=== PATIENT | male | born 1960 | race African-American/Black ===

== ENCOUNTER 2016-08-11 19:46 | Emergency (ER) | payer MEDICARE ==
[~2016-08-11] VITALS: Ht 182.9 cm; Wt 138.3 kg
[2016-08-11 19:50] VITALS: BP 134/64
[2016-08-11 20:57] LABS: TROPONIN I < 0.30 ng/mL (<=0.30)
[2016-08-11 21:00] LABS: ACETAMINOPHEN < 10 ug/mL (10-30); ALANINE AMINOTRANSFERASE 12 U/L (3-41); ALBUMIN/GLOBULIN RATIO 1.2 (1.0-2.7); ALCOHOL < 10 mg/dL; ANION GAP 11 (5-15); ASPARTATE AMINO TRANSFERASE 19 U/L (5-40); CALCIUM 9.1 mg/dL (8.6-10.2); CARBON DIOXIDE 34 mEQ/L (20-30); CHLORIDE 90 mEQ/L (98-107); CREATININE 0.6 mg/dL (0.7-1.2); GLOMERULAR FILTRATION RATE > 60 mL/min (>60); HEMOLYSIS 2; POTASSIUM 3.5 mEQ/L (3.4-4.9); SODIUM 135 mEQ/L (135-145); TOTAL PROTEIN 6.9 g/dL (6.6-8.7)
[2016-08-11 21:11] LABS: CKMB 3.8 ng/mL (< 6.7)
[2016-08-11 21:22] LABS: BASOPHILS % (AUTO) 1.6 % (0.0-2.0); EOSINOPHILS % (AUTO) 3.7 % (0.0-3.0); LYMPHOCYTES % (AUTO) 36.5 % (20.0-45.0); MEAN CORPUSCULAR HEMOGLOBIN 27.3 PG (27.0-31.0); MEAN CORPUSCULAR HGB CONC 32.5 G/DL (32.0-36.0); MEAN CORPUSCULAR VOLUME 84 FL (80-99); MEAN PLATELET VOLUME 7.2 FL (6.5-10.1); MONOCYTES % (AUTO) 6.8 % (1.0-10.0); NEUTROPHILS % (AUTO) 51.4 % (45.0-75.0); PLATELET COUNT 164 K/UL (150-450); RED BLOOD COUNT 3.98 M/UL (4.70-6.10); RED CELL DISTRIBUTION WIDTH 13.9 % (11.6-14.8); WHITE BLOOD COUNT 5.7 K/UL (4.8-10.8)
[2016-08-11] MEDS ORDERED: ASPIRIN81 MG ORAL (21:43)
[2016-08-11] MEDS ORDERED: TRAZODONE HCL100 MG ORAL (21:43)
[2016-08-11] MEDS ORDERED: AMLODIPINE BESYL5 MG ORAL (21:43)
[2016-08-11] MEDS ORDERED: HYDROCHLOROTHIA25 MG ORAL (21:43)
[2016-08-11] MEDS ORDERED: DEPAKOTE250 MG PO (21:43)
[2016-08-11] MEDS ORDERED: REMERON45 MG ORAL (21:43)
[2016-08-11] MEDS ORDERED: HALOPERIDOL1 MG ORAL (21:43)
[2016-08-11] MEDS ORDERED: PANTOPRAZOLE SO40 MG ORAL (21:43)
[2016-08-11] MEDS ORDERED: HUMULIN R100 UNIT/1 SUBQ (21:43)
[2016-08-11] MEDS ORDERED: LOSARTAN POTASS25 MG ORAL (21:43)
[2016-08-11] MEDS ORDERED: LIDOCAINE700 M1 TP (21:43)
[2016-08-11] MEDS ORDERED: SERTRALINE HCL50 MG ORAL (21:43)
[2016-08-11] MEDS ORDERED: METFORMIN HCL1000 M1 ORAL (21:43)
[2016-08-11] MEDS ORDERED: FLEET ENEMA133 ML RECTAL (21:43)
[2016-08-11] MEDS ORDERED: DULCOLAX10 MG RC (21:43)
[2016-08-11] MEDS ORDERED: COLACE100 MG ORAL (21:43)
[2016-08-11] MEDS ORDERED: CLONIDINE HCL0.1 MG PO (21:43)
[2016-08-11] MEDS ORDERED: GLIPIZIDE5 MG ORAL (21:43)
[2016-08-11] MEDS ORDERED: CARAFATE1 G1 ORAL (21:43)
[2016-08-11] MEDS ORDERED: METOPROLOL TART25 MG ORAL (21:43)
[2016-08-11] MEDS ORDERED: LIQUITEARS15 ML BOTH EYES (21:43)
[2016-08-11 21:50] VITALS: BP 148/71
--- NOTE | 2016-08-11 22:01 | Emergency Room Report ---
History of Present Illness General Chief Complaint: General Complaint Source: Patient, Medical Record, EMS Present Illness HPI 55-year-old male presents to ED for evaluation. Per EMS patient was brought here because he was altered at the group home. EMS states that the nurse tried to wake up the patient is having trouble so she called 911. When EMS evaluated the patient he was awake. However he felt lethargic. Patient states he feels "groggy". Patient states he otherwise feels fine. Denies any headaches, blurry vision, nausea or vomiting. Denies chest pain or shortness of breath. Per record shows extensive psychiatric history and is on multiple medications. Patient denies any suicidal or homicidal ideation. Denies hearing voices. No other aggravating relieving factors. Denies any other associated symptoms Allergies: Uncoded Allergies: ALMONDS (Allergy, Unknown, 08/11/16) Patient History Past Medical History: HTN, CAD, COPD, GERD, psych hx Past Surgical History: none Pertinent Family History: none Social History: Denies: alcohol use, drug use, smoking Immunizations: UTD Reviewed Nursing Documentation: PMH: Agreed, PSxH: Agreed Nursing Documentation-PMH Hx Cardiac Problems: Yes - CAD,ATHEROSCLEROSIS,SLEEP APNEA Hx Hypertension: Yes Hx COPD: Yes Hx Diabetes: Yes Hx Gastrointestinal Problems: Yes - GERD,AKF History Of Psychiatric Problem: Yes - SCHIZOPHRENIA,ANXIETY Review of Systems All Other Systems: negative except mentioned in HPI Physical Exam Vital Signs Date Time Temp Pulse Resp B/P Pulse Ox O2 Delivery O2 Flow Rate FiO2 08/11/16 19:48 98.1 88 16 141/75 92 Room Air Sp02 EP Interpretation: reviewed, normal General Appearance: no apparent distress, alert, GCS 15, non-toxic, obese Head: normocephalic, atraumatic Eyes: bilateral eye PERRL, bilateral eye normal inspection ENT: hearing grossly normal, normal pharynx, no angioedema, normal voice Neck: full range of motion, supple/symm/no masses Respiratory: chest non-tender, lungs clear, normal breath sounds, speaking full sentences Cardiovascular #1: regular rate, rhythm, no edema Cardiovascular #2: 2+ carotid (R), 2+ carotid (L), 2+ radial (R), 2+ radial (L) , 2+ dorsalis pedis (R), 2+ dorsalis pedis (L) Gastrointestinal: normal bowel sounds, non tender, soft, non-distended, no guarding, no rebound Rectal: deferred Genitourinary: normal inspection, no CVA tenderness Musculoskeletal: back normal, gait/station normal, normal range of motion, non- tender Neurologic: alert, oriented x3, responsive, motor strength/tone normal, sensory intact, speech normal Psychiatric: judgement/insight normal, memory normal, mood/affect normal, no suicidal/homicidal ideation Reflexes: 3+ bicep (R), 3+ bicep (L), 3+ tricep (R), 3+ tricep (L), 3+ knee (R) , 3+ knee (L) Skin: normal color, no rash, warm/dry, well hydrated Lymphatic: no adenopathy Medical Decision Making Diagnostic Impression: Primary Impression: Altered level of consciousness ER Course Hospital Course 55-year-old male presents to ED for evaluation. Lethargic at the group home. More awake now Differential diagnoses include: Psychosis, EtOH, drug abuse Clinical course patient placed on stretcher. On classroom monitor. After initial history and physical ordered labs, IV fluids, EKG, CT brain. Labs reviewed-electrolytes okay, no leukocytosis, hemoglobin/hematocrit stable, tox panel negative. EKG - NSR, no acute changes CXR unremarkable CT brain shows no acute pathology patient remains awake and oriented here. Given negative workup I do not believe patient requires admission at this time. Discussed case with PMD Dr. Nagy and he agrees patient can be safely discharged back to facility i. I feel this is a highly complex case requiring extensive working including EKG/Rhythm strip, Xray/CT/US, Blood/urine lab work, repeat exams while in ED, and administration of strong opiates/narcotics for pain control, admission to hospital or close patient follow up. Diagnosis - ALOC Stable and discharged to SNF. Followup with PMD. Return to ED if symptoms recur or worsen Labs Test 08/11/16 20:28 08/11/16 20:55 Sodium Level 135 mEQ/L (135-145) Potassium Level 3.5 mEQ/L (3.4-4.9) Chloride Level 90 mEQ/L (98-107) Carbon Dioxide Level 34 mEQ/L (20-30) Anion Gap 11 (5-15) Blood Urea Nitrogen 10 mg/dL (7-23) Creatinine 0.6 mg/dL (0.7-1.2) Estimat Glomerular Filtration Rate > 60 mL/min (>60) Glucose Level 118 mg/dL (74-106) Calcium Level 9.1 mg/dL (8.6-10.2) Total Bilirubin 0.4 mg/dL (0.0-1.2) Aspartate Amino Transf (AST/SGOT) 19 U/L (5-40) Alanine Aminotransferase (ALT/SGPT) 12 U/L (3-41) Alkaline Phosphatase 43 U/L (40-129) Total Creatine Kinase 522 U/L (38-174) Creatine Kinase MB 3.8 ng/mL (< 6.7) Creatine Kinase MB Relative Index 0.7 Troponin I < 0.30 ng/mL (<=0.30) Pro-B-Type Natriuretic Peptide 90 pg/mL (0-125) Total Protein 6.9 g/dL (6.6-8.7) Albumin 3.8 g/dL (3.5-5.2) Globulin 3.1 g/dL Albumin/Globulin Ratio 1.2 (1.0-2.7) Salicylates Level < 1 mg/dL (10-30) Acetaminophen Level < 10 ug/mL (10-30) Serum Alcohol < 10 mg/dL White Blood Count 5.7 K/UL (4.8-10.8) Red Blood Count 3.98 M/UL (4.70-6.10) Hemoglobin 10.8 G/DL (14.2-18.0) Hematocrit 33.4 % (42.0-52.0) Mean Corpuscular Volume 84 FL (80-99) Mean Corpuscular Hemoglobin 27.3 PG (27.0-31.0) Mean Corpuscular Hemoglobin Concent 32.5 G/DL (32.0-36.0) Red Cell Distribution Width 13.9 % (11.6-14.8) Platelet Count 164 K/UL (150-450) Mean Platelet Volume 7.2 FL (6.5-10.1) Neutrophils (%) (Auto) 51.4 % (45.0-75.0) Lymphocytes (%) (Auto) 36.5 % (20.0-45.0) Monocytes (%) (Auto) 6.8 % (1.0-10.0) Eosinophils (%) (Auto) 3.7 % (0.0-3.0) Basophils (%) (Auto) 1.6 % (0.0-2.0) Urine Opiates Screen Negative (NEGATIVE) Urine Barbiturates Screen Negative (NEGATIVE) Phencyclidine (PCP) Screen Negative (NEGATIVE) Urine Amphetamines Screen Negative (NEGATIVE) Urine Benzodiazepines Screen Negative (NEGATIVE) Urine Cocaine Screen Negative (NEGATIVE) Urine Marijuana (THC) Screen Negative (NEGATIVE) EKG Diagnostic Results Rate: normal Rhythm: NSR ST Segments: no acute changes ASA given to the pt in ED: No Rhythm Strip Diag. Results EP Interpretation: yes Rhythm: NSR, no PVC's, no ectopy Chest X-Ray Diagnostic Results EP Interpretation: Yes Findings: no consolidation, no effusion, no pneumothorax, no acute cardiopulmonary disease Number of Views: 1 CT/MRI/US Diagnostic Results CT/MRI/US Diagnostic Results : Imaging Test Ordered: CT head Impression no acute process Last Vital Signs Date Time Temp Pulse Resp B/P Pulse Ox O2 Delivery O2 Flow Rate FiO2 08/11/16 19:50 98.1 79 16 134/64 92 Room Air Status: improved Disposition: XFER SNF Condition: Stable Patient Instructions: Polypharmacy Problems, [id number], Altered Mental Status ANDREA EATON M.D. Aug 11, 2016 22:01
[2016-08-11 22:57] VITALS: BP 142/69
--- NOTE | 2016-08-12 08:55 | Diagnostic Imaging Report ---
Indications: Mental Technique: Spiral acquisitions obtained through the brain. Angled axial and coronal 5 x 5 mm slices were reconstructed. Total dose length product 1569 mGycm. CTDI vol(s) 70 mGy. Dose reduction achieved using automated exposure control Comparison: None Findings: No acute hemorrhage or edema. No mass effect or midline shift. Normal park-white differentiation. Mildly prominent ventricles, normal caliber extra axial CSF spaces. There is patency of the cavum septum pellucidum. Prominent sella turcica containing CSF attenuation material, likely empty sella. Visualized orbits are unremarkable. There is ethmoid, sphenoid, and maxillary sinus disease. Mastoids are clear. The calvarium is intact.. Impression: Mild age-related volume loss Negative for acute intracranial bleed or mass effect Sinus disease This agrees with the preliminary interpretation provided overnight by Dr. Lyons The CT scanner at [facility] is accredited by the [employer] and the scans are performed using protocols designed to limit radiation exposure to as low as reasonably achievable to attain images of sufficient resolution adequate for diagnostic evaluation.
--- NOTE | 2016-08-12 10:31 | Diagnostic Imaging Report ---
Indication: Chest pain Technique: One view of the chest Comparison: none Findings: Body habitus limits evaluation. The heart is borderline enlarged. Lungs and pleural spaces are clear. Impression: Cardiomegaly. No acute process
== END 2016-08-11 22:57 ==
LOC: EDBD 19:46 → EMR 20:45
DX: R41.82 Altered mental status, unspecified (principal); R53.83 Other fatigue; I10 Essential (primary) hypertension; I25.10 Atherosclerotic heart disease of native coronary artery without angina pectoris; J44.9 Chronic obstructive pulmonary disease, unspecified; G47.30 Sleep apnea, unspecified; F41.9 Anxiety disorder, unspecified; Z91.018 Allergy to other foods
CPT/HCPCS: 36415; 70450; 71010; 80053; 80300; 82550; 82553; 83880; 84484; 85025; 93005; 96360; 99284; G0480; 80329

== ENCOUNTER 2016-09-12 09:24 | Emergency (ER) | payer MEDICARE ==
[~2016-09-12] VITALS: Ht 182.9 cm; Wt 102.1 kg
[~2016-09-12 09:24] MED LIST: AMLODIPINE BESYL5 MG ORAL; ASPIRIN81 MG ORAL; CARAFATE1 G1 ORAL; CLONIDINE HCL0.1 MG PO; COLACE100 MG ORAL; DEPAKOTE250 MG PO; DULCOLAX10 MG RC; FLEET ENEMA133 ML RECTAL; GLIPIZIDE5 MG ORAL; HALOPERIDOL1 MG ORAL; HUMULIN R100 UNIT/1 SUBQ; HYDROCHLOROTHIA25 MG ORAL; LIDOCAINE700 M1 TP; LIQUITEARS15 ML BOTH EYES; LOSARTAN POTASS25 MG ORAL; METFORMIN HCL1000 M1 ORAL; METOPROLOL TART25 MG ORAL; PANTOPRAZOLE SO40 MG ORAL; REMERON45 MG ORAL; SERTRALINE HCL50 MG ORAL; TRAZODONE HCL100 MG ORAL
[2016-09-12 09:38] VITALS: BP 144/93
[2016-09-12 10:09] LABS: BASOPHILS % (AUTO) 1.1 % (0.0-2.0); EOSINOPHILS % (AUTO) 2.4 % (0.0-3.0); LYMPHOCYTES % (AUTO) 39.2 % (20.0-45.0); MEAN CORPUSCULAR HEMOGLOBIN 27.3 PG (27.0-31.0); MEAN CORPUSCULAR HGB CONC 31.6 G/DL (32.0-36.0); MEAN CORPUSCULAR VOLUME 86 FL (80-99); MEAN PLATELET VOLUME 8.1 FL (6.5-10.1); MONOCYTES % (AUTO) 8.6 % (1.0-10.0); NEUTROPHILS % (AUTO) 48.8 % (45.0-75.0); PLATELET COUNT 161 K/UL (150-450); RED BLOOD COUNT 4.41 M/UL (4.70-6.10); RED CELL DISTRIBUTION WIDTH 13.8 % (11.6-14.8); WHITE BLOOD COUNT 5.2 K/UL (4.8-10.8)
[2016-09-12 10:21] LABS: TROPONIN I < 0.30 ng/mL (<=0.30)
[2016-09-12 10:23] LABS: ACETAMINOPHEN < 10 ug/mL (10-30); ALANINE AMINOTRANSFERASE 9 U/L (3-41); ALBUMIN/GLOBULIN RATIO 1.4 (1.0-2.7); ALCOHOL < 10 mg/dL; ANION GAP 11 (5-15); ASPARTATE AMINO TRANSFERASE 18 U/L (5-40); CALCIUM 8.9 mg/dL (8.6-10.2); CARBON DIOXIDE 30 mEQ/L (20-30); CHLORIDE 101 mEQ/L (98-107); CREATININE 0.7 mg/dL (0.7-1.2); GLOMERULAR FILTRATION RATE > 60 mL/min (>60); HEMOLYSIS 4; POTASSIUM 3.7 mEQ/L (3.4-4.9); SODIUM 142 mEQ/L (135-145); TOTAL PROTEIN 6.6 g/dL (6.6-8.7)
[2016-09-12 10:24] LABS: AMMONIA 70 umol/L (16-60)
[2016-09-12 10:33] LABS: THYROID STIMULATING HORMONE 0.628 uIU/mL (0.300-4.500)
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
[2016-09-12 13:30] VITALS: BP 138/84
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
[2016-09-12] MEDS ORDERED: BENZTROPINE MESY1 MG PO (15:48)
[2016-09-12] MEDS ORDERED: HALOPERIDOL1 MG ORAL (15:48)
[2016-09-12] MEDS ORDERED: Haloperidol 5mg/ml Inj IM ONE (19:00)
[2016-09-12 19:13] VITALS: BP 142/87
[2016-09-12] MEDS ORDERED: ZyPREXA Zydis 10mg tab ORAL ONE (20:00)
[2016-09-13 03:25] VITALS: BP 1/1
== END 2016-09-13 03:00 | disposition home or self-care (01) ==
LOC: EDBD 09:24 → EMR 09:37
DX: F15.10 Other stimulant abuse, uncomplicated (principal); F22 Delusional disorders; I25.10 Atherosclerotic heart disease of native coronary artery without angina pectoris; G47.30 Sleep apnea, unspecified; I10 Essential (primary) hypertension; J44.9 Chronic obstructive pulmonary disease, unspecified; E11.9 Type 2 diabetes mellitus without complications; K21.9 Gastro-esophageal reflux disease without esophagitis
CPT/HCPCS: 36415; 80053; 80300; 82140; 82550; 84443; 84484; 85025; 93005; 99284; G0480; 80329